=== PATIENT | male | born 1945 | race Caucasian/White ===

== ENCOUNTER 2025-08-29 11:21 | Outpatient (CLI) | payer MEDICARE ==
[2025-08-29 12:33] LABS: Hematocrit 37.8 % (42.0-52.0); Hemoglobin 11.6 g/dL (14.0-18.0); Mean Corpuscular Hemoglobin 30.4 pg (27.0-31.0); Mean Corpuscular Volume 99.2 fL (78.0-98.0); Platelet Count 115 10x3/uL (130-400); Red Blood Cell (RBC) Count 3.81 mill/uL (4.70-6.10); White Blood Cell (WBC) Count 8.45 10x3/uL (4.8-10.8)
[2025-08-29 12:43] LABS: INR-International Normal Ratio 1.1; PTT 31.5 sec (22.9-36.1); Prothrombin Time 14.0 sec (12.0-14.7)
[2025-08-29 12:44] LABS: Anion Gap 16 mmol/L (10-20); BUN (Urea Nitrogen) 35 mg/dL (8.4-25.7); Calc. Creatinine Clearance 0 mL/min (70-130); Calcium 9.2 mg/dL (7.8-10.44); Carbon Dioxide 26 mmol/L (23-31); Chloride 101 mmol/L (98-107); Glucose 99 mg/dL (83-110); Potassium 4.0 mmol/L (3.5-5.1); Sodium 139 mmol/L (136-145)
[2025-08-29 13:41] LABS: Anisocytosis SLIGHT = 6-15 cells HPF (0-5); Burr Cells SLIGHT = 2-5 cells HPF (0-1); Platelet Adequacy Comment Platelets Decreased; Poikilocytosis SLIGHT = 6-15 cells HPF (0-5); Polychromasia SLIGHT = 2-3 cells HPF (0-2); Smudge Cells 9.0 %
== END 2025-08-29 11:22 | disposition home or self-care (01) ==
LOC: LABBT 11:21
PROVIDERS: ATTEND Surgery
DX: Z01.818 Encounter for other preprocedural examination (principal); T82.590A Other mechanical complication of surgically created arteriovenous fistula, initial encounter
CPT/HCPCS: 71046; 80048; 85025; 85610; 85730; 93005; 93010

== ENCOUNTER 2025-08-31 05:32 | Day surgery (SDC) | payer MEDICARE ==
[2025-08-29 11:46] VITALS: BMI 25.1
[2025-08-31] MEDS ORDERED: Heparin 5,000 UNITS/ML VIAL ONE (06:20)
[2025-08-31] MEDS ORDERED: Heparin 10,000 UNITS/ 10 ML VIAL ONE ×2 (06:20→07:26)
[2025-08-31] MEDS ORDERED: Lidocaine 1% (PF) 30 ML VIAL ONE (06:21)
[2025-08-31] MEDS ORDERED: Phenylephrine 40 MG/NS 250 ML 250 ML ONE (06:31)
[2025-08-31] MEDS ORDERED: Lidocaine 1% PF 5 ML VIAL ONE (06:31)
[2025-08-31] MEDS ORDERED: Vancomycin 1 GM/200 ML (FROZEN) BAG ONE (06:46)
[2025-08-31] MEDS ORDERED: PROPOFOL 200 MG/20 ML VIAL ONE (07:22)
[2025-08-31] MEDS ORDERED: Glycopyrrolate 0.2 MG/ML 5 ML SYRINGE ONE (07:22)
[2025-08-31] MEDS ORDERED: Ondansetron PF 4 MG/2 ML Vial ONE (07:35)
[2025-08-31] MEDS ORDERED: Iopamidol 0 ML ONE (08:05)
[2025-08-31] MEDS ORDERED: fentaNYL PF 100 MCG/2 ML SYRINGE ONE ×2 (10:04→10:38)
== END 2025-08-31 12:43 | disposition home or self-care (01) ==
LOC: SDC 05:32
PROVIDERS: ATTEND Surgery
PROC: 06C Lower Veins, Extirpation (ICD-10-PCS; principal; 2025-08-31)
DX: T82.590A Other mechanical complication of surgically created arteriovenous fistula, initial encounter (principal); N18.6 End stage renal disease; Z99.2 Dependence on renal dialysis; Z87.891 Personal history of nicotine dependence; Z88.0 Allergy status to penicillin; Z98.890 Other specified postprocedural states; Y83.1 Surgical operation with implant of artificial internal device as the cause of abnormal reaction of the patient, or of later complication, without mention of misadventure at the time of the procedure
CPT/HCPCS: 36833; A6258; J1100; J1644 ×2; J2371; J2405; J2704; J2720; J3010; J3373 ×2; J2003; Q9967